=== PATIENT | female | born 1995 | race Two or more races ===

== ENCOUNTER 2025-05-01 15:39 | Outpatient (CLI) | payer OTHER | END 2025-05-01 15:42 | disposition home or self-care (01) | LOC: PRENATAL 15:39 | PROVIDERS: ATTEND Obstetrics & Gynecology Maternal & Fetal Medicine | DX: O36.80X0 Pregnancy with inconclusive fetal viability, not applicable or unspecified (principal); Z36.82 Encounter for antenatal screening for nuchal translucency; O99.210 Obesity complicating pregnancy, unspecified trimester; Z3A.13 13 weeks gestation of pregnancy ==

== ENCOUNTER 2025-05-05 10:28 | Emergency (ER) | payer OTHER ==
[~2025-05-05] VITALS: Ht 170.2 cm; Wt 114.3 kg
[2025-05-05] MEDS ORDERED: ADULT LOW DOSE81 M1 PO (11:22)
[2025-05-05] MEDS ORDERED: PRENATA CHEWAB1 EACH PO (11:22)
[2025-05-05] MEDS ORDERED: ACETAMINOPHEN 500 MG GEL..CAP PO ONE ×2 (15:58→16:00)
[2025-05-05 16:20] LABS: ERYTHROCYTE SEDIMENTATION RATE 64 mm/hr (0-20)
[2025-05-05 16:21] LABS: BASO % 0.2 % (0.1-1.2); EOS # 0.08 (0.04-0.54); EOS % 0.6 % (0.7-7.0); HEMATOCRIT 37.8 % (34.1-44.9); HEMOGLOBIN 12.8 g/dL (11.2-15.7); LYMPH # 3.19 (1.18-3.74); LYMPH % 25.9 % (19.3-53.1); MEAN CORPUSCULAR HEMOGLOBIN 27.6 pg (25.6-32.2); MONO # 0.69 (0.24-0.82); MONO % 5.6 % (4.7-12.5); NEUT # 8.31 (1.56-6.13); NEUT % 67.4 % (34.0-71.1); PLATELET COUNT 309 K/uL (163-369); RED BLOOD COUNT 4.63 M/uL (3.93-5.22); RED CELL DISTRIBUTION WIDTH 14.2 % (11.6-14.4)
[2025-05-05 16:51] LABS: ALBUMIN 3.1 gm/dL (3.4-5.0); BILIRUBIN TOTAL 0.22 mg/dL (0.3-1.2); CALCIUM 8.8 mg/dL (8.5-10.1); CREATININE SERUM 0.54 mg/dL (0.55-1.02); GFR 134.43; GLOBULINA 4.6 G/DL (2.4-3.5); POTASSIUM 4.21 mEq/L (3.5-5.1); TOTAL PROTEIN 7.7 gm/dL (6.4-8.2)
[2025-05-05 16:59] LABS: PH,URINE 5.5 (5.0-8.0); URINE APPEARANCE Clear; URINE BILIRRUBIN Negative (NEGATIVE); URINE BLOOD Negative; URINE COLOR Yellow; URINE GLUCOSE Negative (NEGATIVE); URINE KETONE Negative (NEGATIVE); URINE LEUKOCYTE Negative; URINE NITRATE Negative; URINE PROTEIN Negative (NEGATIVE); URINE UROBILINOGEN 0.2 E.U./dl
[2025-05-05 17:00] LABS: URINE BACTERIA 3664.4 uL (0.0-1933); URINE EPITHELIAL CELLS 64.4 uL (0.0-38.8); URINE RBC 22.9 uL (0.0-20.8); URINE WBC 16.9 uL (0.0-23.2)
[2025-05-05] MEDS ORDERED: CEFAZOLIN SODIUM 1,000 MG VIAL IM STA (18:38)
[2025-05-05] MEDS ORDERED: CEFAZOLIN SODIUM 1,000 MG VIAL ONE (18:56)
[2025-05-05] MEDS ORDERED: LIDOCAINE HCL 1% 10ML VIAL ONE (18:56)
== END 2025-05-05 19:07 | disposition home or self-care (01) ==
LOC: ER 10:28
PROVIDERS: Preventive Medicine Public Health & General Preventive Medicine
DX: Z34.90 Encounter for supervision of normal pregnancy, unspecified, unspecified trimester (principal); Z3A.13 13 weeks gestation of pregnancy; L02.821 Furuncle of head [any part, except face]; R51.9 Headache, unspecified

== ENCOUNTER 2025-05-17 22:24 | Emergency (ER) | payer OTHER ==
[~2025-05-17] VITALS: Ht 172.7 cm; Wt 117.0 kg
[~2025-05-17 22:24] MED LIST: ADULT LOW DOSE81 M1 PO; PRENATA CHEWAB1 EACH PO
[2025-05-18] MEDS ORDERED: NORFLEX100MG PO (00:27)
[2025-05-18] MEDS ORDERED: ORPHENADRINE CITRATE 30 MG/ML AMPUL IM ONE (00:30)
[2025-05-18] MEDS ORDERED: DEXAMETHASONE SODIUM PHOSPHATE 4 MG/ML VIAL IM ONE (00:30)
[2025-05-18] MEDS ORDERED: BUTALB/ACETAMINOPHEN/CAFFEINE 1 TAB TABLET PO ONE ×2 (00:30→00:43)
[2025-05-18] MEDS ORDERED: ORPHENADRINE CITRATE 30 MG/ML AMPUL ONE (00:43)
[2025-05-18] MEDS ORDERED: DEXAMETHASONE SODIUM PHOSPHATE 4 MG/ML VIAL ONE (00:44)
== END 2025-05-18 01:01 | disposition home or self-care (01) ==
LOC: ER 23:19
DX: O26.892 Other specified pregnancy related conditions, second trimester (principal); R51.9 Headache, unspecified; Z3A.16 16 weeks gestation of pregnancy

== ENCOUNTER 2025-06-13 17:30 | Emergency (ER) | payer OTHER ==
[~2025-06-13] VITALS: Ht 170.2 cm; Wt 124.3 kg
[~2025-06-13 17:30] MED LIST changes: +NORFLEX100MG PO
[2025-06-13 19:04] VITALS: O2SAT 100
[2025-06-13 20:51] LABS: INR 0.96
[2025-06-13 21:00] LABS: ALT/SGPT 21.0 U/L (12-78); AST/SGOT 16.0 U/L (15-37); BILIRUBIN TOTAL 0.19 mg/dL (0.3-1.2); BUN CREA RATIO 18.0 (7.0-25.0); CREATININE SERUM 0.57 mg/dL (0.55-1.02); GFR 126.3; GLOBULINA 4.6 G/DL (2.4-3.5); GLUCOSE FASTING 75.0 mg/dL (65-100); OSMOLALITY SERUM 275.0 MOSM/KG (275-295)
[2025-06-13 21:01] LABS: BASO % 0.2 % (0.1-1.2); EOS # 0.09 (0.04-0.54); EOS % 0.7 % (0.7-7.0); LYMPH # 3.55 (1.18-3.74); LYMPH % 26.5 % (19.3-53.1); MEAN PLATELET VOLUME 10.70 fl (9.4-12.4); MONO # 0.83 (0.24-0.82); MONO % 6.2 % (4.7-12.5); NEUT # 8.86 (1.56-6.13); NEUT % 66.0 % (34.0-71.1); RED CELL DISTRIBUTION WIDTH 14.6 % (11.6-14.4)
[2025-06-13 21:34] LABS: HCG QUANTITATIVE 22302.0 mUI/mL (1-3)
[2025-06-13 22:16] VITALS: BP 120/80
== END 2025-06-13 22:17 | disposition home or self-care (01) ==
LOC: ER 17:30
PROVIDERS: General Practice
DX: O26.892 Other specified pregnancy related conditions, second trimester (principal); Z3A.19 19 weeks gestation of pregnancy; R10.2 Pelvic and perineal pain

== ENCOUNTER → 2025-06-25 08:21 | Outpatient (CLI) | payer OTHER | END | disposition home or self-care (01) | LOC: PRENATAL 08:21 | PROVIDERS: ATTEND Obstetrics & Gynecology Maternal & Fetal Medicine | DX: O44.00 Complete placenta previa NOS or without hemorrhage, unspecified trimester (principal); O99.210 Obesity complicating pregnancy, unspecified trimester; Z3A.21 21 weeks gestation of pregnancy ==

== ENCOUNTER 2025-08-15 07:31 | Outpatient (CLI) | payer OTHER ==
[2025-08-15 08:01] LABS: BASO % 0.2 % (0.1-1.2); EOS # 0.10 (0.04-0.54); EOS % 0.8 % (0.7-7.0); LYMPH # 3.39 (1.18-3.74); LYMPH % 25.7 % (19.3-53.1); MEAN PLATELET VOLUME 10.70 fl (9.4-12.4); MONO # 0.74 (0.24-0.82); MONO % 5.6 % (4.7-12.5); NEUT # 8.87 (1.56-6.13); NEUT % 67.2 % (34.0-71.1); RED CELL DISTRIBUTION WIDTH 14.2 % (11.6-14.4)
== END 2025-08-15 07:53 | disposition home or self-care (01) ==
LOC: LAB 07:31
PROVIDERS: ATTEND Obstetrics & Gynecology
DX: Z34.03 Encounter for supervision of normal first pregnancy, third trimester (principal); Z3A.28 28 weeks gestation of pregnancy

== ENCOUNTER 2025-08-15 09:42 | Outpatient (CLI) | payer OTHER | END 2025-08-15 09:44 | disposition home or self-care (01) | LOC: PRENATAL 09:42 | PROVIDERS: ATTEND Obstetrics & Gynecology Maternal & Fetal Medicine | DX: O26.849 Uterine size-date discrepancy, unspecified trimester (principal); O36.8130 Decreased fetal movements, third trimester, not applicable or unspecified; O13.9 Gestational [pregnancy-induced] hypertension without significant proteinuria, unspecified trimester; O99.210 Obesity complicating pregnancy, unspecified trimester; Z3A.29 29 weeks gestation of pregnancy ==

== ENCOUNTER 2025-09-12 00:06 | Outpatient (CLI) | payer OTHER ==
[2025-09-11 23:41] VITALS: BP 113/78
[~2025-09-12] VITALS: Ht 170.2 cm; Wt 127.5 kg
[2025-09-12] MEDS ORDERED: FOLIC ACID0.4 MG PO (00:34)
[2025-09-12] MEDS ORDERED: ADULT LOW DOSE81 M1 PO (00:35)
[2025-09-12] MEDS ORDERED: RINGERS SOLUTION,LACTATED 1,000 ML IV SCH (00:45)
[2025-09-12 00:59] LABS: BASO % 0.2 % (0.1-1.2); EOS # 0.08 (0.04-0.54); EOS % 0.6 % (0.7-7.0); LYMPH # 3.54 (1.18-3.74); LYMPH % 27.1 % (19.3-53.1); MEAN PLATELET VOLUME 11.00 fl (9.4-12.4); MONO # 0.84 (0.24-0.82); MONO % 6.4 % (4.7-12.5); NEUT # 8.55 (1.56-6.13); NEUT % 65.3 % (34.0-71.1); RED CELL DISTRIBUTION WIDTH 14.2 % (11.6-14.4)
[2025-09-12 01:00] LABS: URINE APPEARANCE Clear; URINE BILIRRUBIN Negative (NEGATIVE); URINE BLOOD Negative; URINE COLOR Yellow; URINE KETONE Trace (NEGATIVE); URINE LEUKOCYTE Negative; URINE NITRATE Negative; URINE PROTEIN Trace (NEGATIVE); URINE UROBILINOGEN 0.2 E.U./dl
[2025-09-12 01:04] LABS: URINE BACTERIA 22.7 uL (0.0-1933); URINE EPITHELIAL CELLS 5.6 uL (0.0-38.8); URINE RBC 4.5 uL (0.0-20.8); URINE WBC 12.7 uL (0.0-23.2)
[2025-09-12 01:12] LABS: URINE CAST 0.29 uL (0.0-1.40); URINE GLUCOSE >=1000 MG/DL (NEGATIVE)
[2025-09-12 03:30] VITALS: BP 105/72
[2025-09-12 06:23] VITALS: BP 104/69; O2SAT 97
[2025-09-12 10:30] VITALS: BP 104/64
== END 2025-09-12 10:35 | disposition home or self-care (01) ==
LOC: OBS/DEL 00:06
PROVIDERS: ATTEND Obstetrics & Gynecology
DX: O26.893 Other specified pregnancy related conditions, third trimester (principal); O26.843 Uterine size-date discrepancy, third trimester; O36.8130 Decreased fetal movements, third trimester, not applicable or unspecified; O99.213 Obesity complicating pregnancy, third trimester; Z3A.32 32 weeks gestation of pregnancy

== ENCOUNTER → 2025-10-06 09:42 | Outpatient (CLI) | payer OTHER ==
[~2025-10-06 09:42] MED LIST changes: +FOLIC ACID0.4 MG PO; +PRENATAL TABLE1 EAC1 PO
== END | disposition home or self-care (01) ==
LOC: PRENATAL 09:42
PROVIDERS: ATTEND Obstetrics & Gynecology Maternal & Fetal Medicine
DX: O26.843 Uterine size-date discrepancy, third trimester (principal); O36.8130 Decreased fetal movements, third trimester, not applicable or unspecified; O99.213 Obesity complicating pregnancy, third trimester; Z3A.36 36 weeks gestation of pregnancy

== ENCOUNTER 2025-10-08 17:08 | Outpatient (CLI) | payer OTHER ==
[2025-10-08 16:56] VITALS: BP 124/83
[~2025-10-08 17:08] MED LIST changes: -PRENATAL TABLE1 EAC1 PO
[2025-10-08 17:35] LABS: BASO % 0.2 % (0.1-1.2); EOS # 0.02 (0.04-0.54); EOS % 0.2 % (0.7-7.0); LYMPH # 3.03 (1.18-3.74); LYMPH % 29.4 % (19.3-53.1); MEAN PLATELET VOLUME 12.00 fl (9.4-12.4); MONO # 0.68 (0.24-0.82); MONO % 6.6 % (4.7-12.5); NEUT # 6.51 (1.56-6.13); NEUT % 63.3 % (34.0-71.1); RED CELL DISTRIBUTION WIDTH 14.6 % (11.6-14.4)
[2025-10-08 17:39] LABS: URINE CAST 3.22 uL (0.0-1.40); URINE EPITHELIAL CELLS 178.4 uL (0.0-38.8); URINE RBC 9.5 uL (0.0-20.8); URINE WBC 77.6 uL (0.0-23.2)
[2025-10-08 17:50] LABS: ALT/SGPT 18.0 U/L (12-78); AST/SGOT 18.0 U/L (15-37); BILIRUBIN TOTAL 0.18 mg/dL (0.3-1.2); BUN CREA RATIO 20.0 (7.0-25.0); CREATININE SERUM 0.61 mg/dL (0.55-1.02); GFR 116.79; GLOBULINA 3.8 G/DL (2.4-3.5); GLUCOSE FASTING 89.0 mg/dL (65-100); OSMOLALITY SERUM 277.0 MOSM/KG (275-295)
[2025-10-08 18:26] LABS: URINE APPEARANCE Clear; URINE BILIRRUBIN Negative (NEGATIVE); URINE BLOOD Negative; URINE COLOR Yellow; URINE GLUCOSE Negative (NEGATIVE); URINE KETONE Trace (NEGATIVE); URINE LEUKOCYTE Negative; URINE NITRATE Negative; URINE UROBILINOGEN 0.2 E.U./dl
[2025-10-08 19:00] LABS: URINE PROTEIN 100 (NEGATIVE)
[2025-10-08] MEDS ORDERED: CEFAZOLIN SODIUM 1,000 MG VIAL ONE (19:31)
[2025-10-08 19:36] VITALS: BP 108/74
[2025-10-08] MEDS ORDERED: PRENATAL TABLE1 EAC1 PO (20:42)
[2025-10-08] MEDS ORDERED: CEFAZOLIN SODIUM 1,000 MG VIAL IV STA (20:53)
[2025-10-08] MEDS ORDERED: RINGERS SOLUTION,LACTATED 1,000 ML IV SCH (21:00)
[2025-10-08 23:35] VITALS: BP 119/87
[2025-10-09] MEDS ORDERED: CEFAZOLIN SODIUM 1,000 MG VIAL IV SCH (02:00)
[2025-10-09 05:01] VITALS: BP 120/86
[2025-10-09 06:45] VITALS: BP 119/81; O2SAT 100
== END 2025-10-09 10:23 | disposition home or self-care (01) ==
LOC: OBS/DEL 17:08
PROVIDERS: ATTEND Obstetrics & Gynecology
DX: O14.03 Mild to moderate pre-eclampsia, third trimester (principal); O36.8130 Decreased fetal movements, third trimester, not applicable or unspecified; O10.013 Pre-existing essential hypertension complicating pregnancy, third trimester; O99.213 Obesity complicating pregnancy, third trimester; Z3A.36 36 weeks gestation of pregnancy

== ENCOUNTER 2025-10-19 12:29 | Outpatient (CLI) | payer OTHER ==
[2025-10-19 12:00] VITALS: BP 138/73
[~2025-10-19 12:29] MED LIST changes: +PRENATAL TABLE1 EAC1 PO
[2025-10-19] MEDS ORDERED: MAXFE CAPLET1 EAC1 PO (12:39)
[2025-10-19] MEDS ORDERED: SIMETHICONE125 M1 PO (12:39)
[2025-10-19] MEDS ORDERED: PRENATA CHEWAB1 EACH PO (12:39)
[2025-10-19] MEDS ORDERED: ACETAMINOPHEN 500 MG GEL..CAP PO PRN (13:15)
[2025-10-19 14:36] LABS: ALT/SGPT 23.0 U/L (12-78); AST/SGOT 25.0 U/L (15-37); BILIRUBIN TOTAL 0.22 mg/dL (0.3-1.2); BUN CREA RATIO 17.0 (7.0-25.0); CREATININE SERUM 0.54 mg/dL (0.55-1.02); GFR 134.43; GLOBULINA 3.7 G/DL (2.4-3.5); GLUCOSE FASTING 71.0 mg/dL (65-100); OSMOLALITY SERUM 282.0 MOSM/KG (275-295)
[2025-10-19 15:32] VITALS: BP 126/75
[2025-10-19 20:51] VITALS: BP 136/90
[2025-10-19 23:20] VITALS: BP 121/81
[2025-10-20 03:27] VITALS: BP 130/79
[2025-10-20 07:01] VITALS: BP 117/1; BP 117/71; O2SAT 99
[2025-10-20 11:26] VITALS: BP 122/85
[2025-10-20 13:23] VITALS: BP 122/85
== END 2025-10-20 13:23 | disposition home or self-care (01) ==
LOC: OBS/DEL 12:29
PROVIDERS: Specialist; ATTEND Obstetrics & Gynecology
DX: O16.5 Unspecified maternal hypertension, complicating the puerperium (principal)

== ENCOUNTER 2025-10-22 09:13 | Inpatient (IN) | payer OTHER ==
[~2025-10-22] VITALS: Ht 170.2 cm; Wt 135.2 kg
[2025-10-22 09:00] VITALS: BP 140/98; O2SAT 100
[~2025-10-22 09:13] MED LIST changes: +MAXFE CAPLET1 EAC1 PO; +SIMETHICONE125 M1 PO
[2025-10-22] MEDS ORDERED: RINGERS SOLUTION,LACTATED 1,000 ML IV SCH (09:30)
[2025-10-22] MEDS ORDERED: LABETALOL HCL 200 MG TABLET PO SCH (09:30)
[2025-10-22] MEDS ORDERED: MOTRIN IB200 MG PO (10:12)
[2025-10-22 11:12] VITALS: BP 130/85
[2025-10-22 15:17] VITALS: BP 111/73
[2025-10-22 20:00] VITALS: BP 135/85
[2025-10-22 23:13] VITALS: BP 127/86
[2025-10-23 03:15] VITALS: BP 117/78
[2025-10-23 07:38] VITALS: BP 114/77
[2025-10-23 09:45] VITALS: BP 119/86
[2025-10-23 12:30] VITALS: BP 138/78
[2025-10-23 16:35] VITALS: BP 115/78
[2025-10-23 20:00] VITALS: BP 120/79
[2025-10-24 00:40] VITALS: BP 123/81
[2025-10-24 04:00] VITALS: BP 110/73
[2025-10-24 08:51] VITALS: BP 127/88
== END 2025-10-24 11:06 | disposition home or self-care (01) | DRG 776 ==
LOC: OB/GYN 09:13 → LDR 09:13 → OB/GYN 10-23 08:52
PROVIDERS: ADMIT Obstetrics & Gynecology; ATTEND Obstetrics & Gynecology
DX: O16.5 Unspecified maternal hypertension, complicating the puerperium (principal); Z68.42 Body mass index [BMI] 45.0-49.9, adult; E66.01 Morbid (severe) obesity due to excess calories; Z98.891 History of uterine scar from previous surgery; O99.215 Obesity complicating the puerperium; E66.813 Obesity, class 3

== ENCOUNTER 2025-10-26 14:29 | Emergency (ER) | payer OTHER ==
[~2025-10-26] VITALS: Ht 170.2 cm; Wt 127.9 kg
[~2025-10-26 14:29] MED LIST changes: +MOTRIN IB200 MG PO
[2025-10-26] MEDS ORDERED: LABETALOL HCL200 MG PO (15:36)
[2025-10-26] MEDS ORDERED: ACETAMINOPHEN80 M2 PO (15:37)
[2025-10-26] MEDS ORDERED: CEFTRIAXONE SODIUM 2,000 MG VIAL IV ONE (16:30)
[2025-10-26 16:58] LABS: BASO % 0.2 % (0.1-1.2); EOS # 0.09 (0.04-0.54); EOS % 0.8 % (0.7-7.0); LYMPH # 1.91 (1.18-3.74); LYMPH % 17.4 % (19.3-53.1); MEAN PLATELET VOLUME 9.40 fl (9.4-12.4); MONO # 0.68 (0.24-0.82); MONO % 6.2 % (4.7-12.5); NEUT # 8.25 (1.56-6.13); NEUT % 75.1 % (34.0-71.1); RED CELL DISTRIBUTION WIDTH 15.2 % (11.6-14.4)
[2025-10-26] MEDS ORDERED: PEPCID AC20 MG PO (17:13)
[2025-10-26] MEDS ORDERED: AMOX-CLAV 875-1 EAC1 PO (17:13)
== END 2025-10-26 19:21 | disposition home or self-care (01) ==
LOC: ER 14:30
PROVIDERS: General Practice
DX: O99.893 Other specified diseases and conditions complicating puerperium (principal); I10 Essential (primary) hypertension

== ENCOUNTER 2025-11-03 17:11 | Inpatient (IN) | payer OTHER ==
[~2025-11-03] VITALS: Ht 170.2 cm; Wt 128.8 kg
[~2025-11-03 17:11] MED LIST changes: +ACETAMINOPHEN80 M2 PO; +AMOX-CLAV 875-1 EAC1 PO; +LABETALOL HCL200 MG PO; +PEPCID AC20 MG PO
[2025-11-03] MEDS ORDERED: CEFTRIAXONE SODIUM 1,000 MG VIAL IV SCH (17:52)
[2025-11-03] MEDS ORDERED: RINGERS SOLUTION,LACTATED 1,000 ML IV ONE (18:00)
[2025-11-03] MEDS ORDERED: PANTOPRAZOLE SODIUM 40 MG/VIAL VIAL IV PUSH ONE (18:00)
--- NOTE | 2025-11-03 18:08 | NUR ---
PACIENTE ALERTA Y ORINETADA X3 QUIENR EFIERE VENIR POR HERDIA DE CESARIA ABIERTA EL CUAL OCURRIO WENDY POR LA MANANA. ES PACIENTE DE DR. VIKTORIA HARTMAN.
[2025-11-03] MEDS ORDERED: CEFTRIAXONE SODIUM 1,000 MG VIAL ONE (18:18)
[2025-11-03 19:27] LABS: BASO % 0.1 % (0.1-1.2); EOS # 0.31 (0.04-0.54); EOS % 3.5 % (0.7-7.0); LYMPH # 2.23 (1.18-3.74); LYMPH % 25.5 % (19.3-53.1); MEAN PLATELET VOLUME 10.30 fl (9.4-12.4); MONO # 0.47 (0.24-0.82); MONO % 5.4 % (4.7-12.5); NEUT # 5.72 (1.56-6.13); NEUT % 65.3 % (34.0-71.1); RED CELL DISTRIBUTION WIDTH 14.6 % (11.6-14.4)
[2025-11-03 19:45] LABS: INR 1.04
[2025-11-03 19:48] LABS: URINE APPEARANCE Clear; URINE BILIRRUBIN Negative (NEGATIVE); URINE BLOOD Small; URINE COLOR Dark Yellow; URINE GLUCOSE Negative (NEGATIVE); URINE KETONE Trace (NEGATIVE); URINE LEUKOCYTE Moderate; URINE NITRATE Negative; URINE PROTEIN 30 (NEGATIVE); URINE UROBILINOGEN 1.0 E.U./dl
[2025-11-03 19:50] LABS: ALT/SGPT 28.0 U/L (12-78); AST/SGOT 21.0 U/L (15-37); BILIRUBIN TOTAL 0.26 mg/dL (0.3-1.2); BUN CREA RATIO 19.0 (7.0-25.0); CREATININE SERUM 0.78 mg/dL (0.55-1.02); GFR 87.94; GLOBULINA 5.1 G/DL (2.4-3.5); GLUCOSE FASTING 93.0 mg/dL (65-100); OSMOLALITY SERUM 285.0 MOSM/KG (275-295)
[2025-11-03 19:51] LABS: URINE BACTERIA 75.4 uL (0.0-1933); URINE EPITHELIAL CELLS 5.5 uL (0.0-38.8); URINE RBC 111.3 uL (0.0-20.8)
[2025-11-03 20:02] LABS: URINE CAST 0.56 uL (0.0-1.40)
[2025-11-03 22:48] VITALS: BP 140/89
[2025-11-04] VITALS: BP 109/71
[2025-11-04 08:43] VITALS: BP 99/60
[2025-11-04] MEDS ORDERED: PIPERACILLIN/TAZOBACTAM SODIUM 3.375 GM VIAL IV SCH (12:00)
[2025-11-04] MEDS ORDERED: METRONIDAZOLE/SODIUM CHLORIDE 500 MG/100 ML PIGGYBACK IV SCH (17:00)
[2025-11-04 18:12] VITALS: BP 127/81
[2025-11-05] VITALS: BP 109/65
[2025-11-05 08:00] VITALS: BP 139/78
[2025-11-05] MEDS ORDERED: CEFTRIAXONE SODIUM 1,000 MG VIAL IV SCH (09:00)
[2025-11-05] MEDS ORDERED: LINEZOLID IN DEXTROSE 5% 300 ML IV SCH (10:30)
[2025-11-05 16:00] VITALS: BP 120/80
[2025-11-05] MEDS ORDERED: LACTOBACILLUS ACIDOPHILUS 1 CAP CAP PO SCH (17:00)
[2025-11-06] VITALS: BP 132/81
[2025-11-06] MEDS ORDERED: LINEZOLID IN DEXTROSE 5% 300 ML IV SCH (01:00)
[2025-11-06 08:00] VITALS: BP 134/75
[2025-11-06] MEDS ORDERED: CHLORHEXIDINE GLUCONATE 120 ML BOTTLE TOP SCH (09:00)
[2025-11-06 16:43] VITALS: BP 145/87
[2025-11-06] MEDS ORDERED: AZITHROMYCIN 500 MG VIAL IV STA (17:17)
[2025-11-06] MEDS ORDERED: LINEZOLID 600 MG TABLET PO SCH (21:00)
[2025-11-07] VITALS: BP 135/87
[2025-11-07 08:00] VITALS: BP 131/80
[2025-11-07 16:50] VITALS: BP 126/77
[2025-11-07] MEDS ORDERED: AZITHROMYCIN 500 MG VIAL IV SCH (17:00)
[2025-11-08 00:54] VITALS: BP 133/87
[2025-11-08 09:15] VITALS: BP 115/71
[2025-11-08 17:00] VITALS: BP 134/88
[2025-11-08 23:36] VITALS: BP 129/86
[2025-11-09 08:43] VITALS: BP 125/75
[2025-11-09 17:21] VITALS: BP 139/85
[2025-11-10] VITALS: BP 128/82
[2025-11-10 10:30] VITALS: BP 129/83
[2025-11-10 16:14] VITALS: BP 145/85
[2025-11-11] VITALS: BP 147/88
[2025-11-11 08:00] VITALS: BP 118/62
[2025-11-11 16:00] VITALS: BP 113/71
[2025-11-11] MEDS ORDERED: PIPERACILLIN/TAZOBACTAM SODIUM 3.375 GM VIAL IV SCH (18:00)
[2025-11-12] VITALS: BP 135/88
[2025-11-12 08:17] VITALS: BP 125/81
[2025-11-12 11:24] LABS: BASO % 0.6 % (0.1-1.2); EOS # 0.12 (0.04-0.54); EOS % 2.2 % (0.7-7.0); LYMPH # 1.50 (1.18-3.74); LYMPH % 27.7 % (19.3-53.1); MEAN PLATELET VOLUME 10.00 fl (9.4-12.4); MONO # 0.44 (0.24-0.82); MONO % 8.1 % (4.7-12.5); NEUT # 3.32 (1.56-6.13); NEUT % 61.2 % (34.0-71.1); RED CELL DISTRIBUTION WIDTH 16.0 % (11.6-14.4)
[2025-11-12 12:08] LABS: ALT/SGPT 27.0 U/L (12-78); AST/SGOT 13.0 U/L (15-37); BILIRUBIN TOTAL 0.24 mg/dL (0.3-1.2); BUN CREA RATIO 17.0 (7.0-25.0); CREATININE SERUM 0.78 mg/dL (0.55-1.02); GFR 87.32; GLOBULINA 4.1 G/DL (2.4-3.5); GLUCOSE FASTING 116.0 mg/dL (65-100); OSMOLALITY SERUM 288.0 MOSM/KG (275-295)
[2025-11-13 02:18] VITALS: BP 139/80
[2025-11-13 08:05] VITALS: BP 133/86; O2SAT 100
[2025-11-13 17:15] VITALS: BP 128/85
[2025-11-14 01:32] VITALS: BP 115/72
[2025-11-14 08:00] VITALS: BP 121/78
== END 2025-11-14 16:04 | disposition home or self-care (01) | DRG 863 ==
LOC: ER 17:12 → OB/GYN 17:58
PROVIDERS: General Practice; Internal Medicine Infectious Disease; ADMIT Obstetrics & Gynecology; ATTEND Obstetrics & Gynecology
PROC: 8E0ZXY6 Isolation (ICD-10-PCS; principal; 2025-11-03)
DX: T81.49XA Infection following a procedure, other surgical site, initial encounter (principal); T81.31XA Disruption of external operation (surgical) wound, not elsewhere classified, initial encounter; Y65.8 Other specified misadventures during surgical and medical care; B96.89 Other specified bacterial agents as the cause of diseases classified elsewhere